=== PATIENT | female | born 1970 | race Two or more races ===

== ENCOUNTER → 2018-07-18 | Emergency (ER) | payer OTHER ==
[~2018-07-18] VITALS: Ht 167.6 cm; Wt 84.4 kg
[~2018-07-18] MED LIST: NORVASC10 MG; SYNTHROID100 MCG
== END | disposition left against medical advice (07) ==
LOC: ER 20:27
DX: Z53.20 Procedure and treatment not carried out because of patient's decision for unspecified reasons (principal)